=== PATIENT | male | born 1990 | race Caucasian/White ===

== ENCOUNTER 2016-04-12 22:06 | Emergency (ER) | payer BC ==
[~2016-04-12] VITALS: Ht 188 cm; Wt 122.0 kg
[2016-04-12 22:08] VITALS: BP 143/86; PULSE 98; RESP 16; TEMP 98; O2SAT 98
--- NOTE | 2016-04-13 23:46 | EKG ---
Date Performed: 04/12/2016 Time Performed: 22:57:57 PTAGE: 25 years EKG: Sinus rhythm MODERATE INTRAVENTRICULAR CONDUCTION DELAY BORDERLINE ECG NO PREVIOUS TRACING DOCTOR: Adal Sanchez Interpretating Date/Time 04/13/2016 23:45:29
== END 2016-04-13 01:18 | disposition left against medical advice (07) ==
LOC: NED 22:06
DX: R07.9 Chest pain, unspecified (principal); I45.89 Other specified conduction disorders
CPT/HCPCS: 93005; 99281